=== PATIENT | male | born 1945 | race Caucasian/White ===

== ENCOUNTER 2017-05-21 15:48 | Emergency (ER) | payer OTHER ==
[~2017-05-21] VITALS: Ht 167.6 cm; Wt 8.6 kg
[2017-05-21 15:56] VITALS: Ht 167.6 cm; Wt 8.6 kg
[2017-05-21 17:55] VITALS: BP 145/77
== END 2017-05-21 17:55 | disposition home or self-care (01) ==
LOC: ED 15:48
DX: T81.30XA Disruption of wound, unspecified, initial encounter (principal); Z90.5 Acquired absence of kidney; I10 Essential (primary) hypertension